=== PATIENT | female | born 1960 | race Two or more races ===

== ENCOUNTER 2018-03-14 12:18 | Day surgery (SDC) | payer OTHER ==
[2018-03-14] MEDS ORDERED: PROPOFOL 40 ML (15:06)
== END 2018-03-14 15:57 | disposition home or self-care (01) ==
LOC: GIL 12:18
DX: Z12.11 Encounter for screening for malignant neoplasm of colon (principal); D12.5 Benign neoplasm of sigmoid colon; K64.8 Other hemorrhoids; I10 Essential (primary) hypertension
CPT/HCPCS: 45380; 88305